=== PATIENT | female | born 1990 | race Caucasian/White ===

== ENCOUNTER 2023-05-30 17:10 | Emergency (ER) | payer OTHER, BC ==
[2023-05-30 17:20] VITALS: RESP 18; BMI 25.0
[2023-05-30] MEDS ORDERED: SODIUM CHLORIDE 1,000 ML IV STA (18:11)
[2023-05-30 19:06] LABS: BASO % 0.6 % (0-2.0); EOS % 0.9 % (0-4.5); HEMATOCRIT 29.7 % (32.4-45.2); HEMOGLOBIN 9.2 GM/dL (10.7-15.3); LYMPH % 13.8 % (8-40); MCH 21.8 pg (25.7-33.7); MEAN CELL VOLUME 70.4 fl (80-96); NEUT % 76.7 % (42.8-82.8); PLATELET COUNT 347 10^3/uL (134-434); RBC 4.22 M/mm3 (3.60-5.2); RDW 16.7 % (11.6-15.6); WHITE BLOOD COUNT 9.8 K/mm3 (4.0-10.0)
[2023-05-30 19:14] LABS: INR 0.9 (0.83-1.09); PROTHROMBIN TIME (PATIENT) 10.4 SEC (9.7-13.0)
[2023-05-30 19:17] LABS: ACTIVATED PTT 27.5 SECONDS (25.2-36.5)
[2023-05-30 19:23] LABS: URINE APPEARANCE CLEAR; URINE BILIRUBIN NEGATIVE (NEGATIVE); URINE COLOR YELLOW; URINE GLUCOSE (UA) NEGATIVE (NEGATIVE); URINE KETONE TRACE (NEGATIVE); URINE LEUK ESTERASE NEGATIVE (NEGATIVE); URINE NITRITE NEGATIVE (NEGATIVE); URINE PROTEIN NEGATIVE (NEGATIVE); URINE UROBILINOGEN 0.2 mg/dL (0.2-1.0)
[2023-05-30 19:24] LABS: POTASSIUM 3.7 mmol/L (3.5-5.1)
[2023-05-30 19:26] LABS: ALBUMIN 3.6 g/dl (3.4-5.0); BLOOD UREA NITROGEN 12.4 mg/dL (7-18); CALCIUM 9.1 mg/dL (8.5-10.1)
[2023-05-30 19:27] LABS: HCG,QUALITATIVE URINE Negative; MAGNESIUM 2.3 mg/dL (1.8-2.4)
[2023-05-30 19:29] LABS: CREATININE 0.8 mg/dL (0.55-1.3)
[2023-05-30 19:32] LABS: BILIRUBIN,TOTAL 0.2 mg/dL (0.2-1); TOT PROT 7.1 g/dl (6.4-8.2)
[2023-05-30 19:40] VITALS: BP 139/93; PULSE 80; TEMP 98.1
[2023-05-30] MEDS ORDERED: ONDANSETRON 4 MG/2 ML VIAL IVPUSH ONE (21:05)
[2023-05-30] MEDS ORDERED: ONDANSETRON 4 MG/2 ML VIAL ONE (21:12)
[2023-05-30 21:19] LABS: ANISOCYTOSIS 2+; MACROCYTOSIS 0; OVALOCYTE 2+; TARGET CELLS 2+; TEAR DROP CELLS 2+
== END 2023-05-30 21:20 | disposition home or self-care (01) ==
LOC: JER 17:10
PROC: 3E0337Z Introduction of Electrolytic and Water Balance Substance into Peripheral Vein, Percutaneous Approach (ICD-10-PCS; principal; 2023-05-30)
DX: R55 Syncope and collapse (principal); Z20.822 Contact with and (suspected) exposure to COVID-19
CPT/HCPCS: 0241U-QW; 36415; 71046-TC-FY; 80053; 81003; 82962; 83735; 84484; 84703; 85025; 85379; 85610; 85730; 86850; 86900; 86901; 87086; 87186; 93005; 93010; 99285-25